=== PATIENT | female | born 1960 | race Hispanic/Latino ===

== ENCOUNTER → 2017-07-24 | Outpatient (CLI) | payer BC ==
[~2017-07-24] MED LIST: SYNTHROID125 MCG PO
--- NOTE | 2017-07-24 11:33 | Diagnostic Imaging Report ---
TECHNIQUE: Magnetic resonance imaging of the RIGHT KNEE was performed WITHOUT injected contrast. HISTORY: Osteoarthritis COMPARISON: None available. FINDINGS: LIGAMENTS AND TENDONS: ACL: Intact PCL: Intact Collateral ligaments: Intact Iliotibial band: Unremarkable Popliteal tendon: Intact Extensor mechanism: Intact JOINT: Menisci: Medial: Intrasubstance degeneration of the body with subtle contour irregularity along the tibial articular surface of the periphery (series 5 image 15). Lateral: Severe complex tearing and attenuation of the anterior horn and adjacent body. Peripheral extrusion of the meniscal remnants. Articular Cartilage: Medial Compartment: Low-grade erosion and fibrillation involving the weight-bearing cartilage of the femoral condyle and tibial plateau. Lateral Compartment: Low to high-grade erosion and fibrillation involving the weight-bearing cartilage of the femoral condyle greater than the tibial plateau. Patellofemoral Compartment: Full-thickness erosion of the lateral patellar facet. Joint Fluid: Trace effusion and synovitis. A 7 mm heterogeneous focus within a lobulated fluid collection superficial to the medial collateral ligament, likely a minimally distended extension from a Astorga's cyst. BONES: The bone marrow signal is heterogeneous, compatible with red marrow conversion, no specific evidence of a focal bone marrow replacing abnormality. No acute fracture. Lateral tilt and translation of the patella. Hypoplastic femoral trochlea. SOFT TISSUES: Otherwise, unremarkable. IMPRESSION: 1. Lateral and patellofemoral compartment predominant tricompartmental degenerative changes, including degenerative tearing of the lateral meniscus much greater than the medial meniscus. 2. Reactive synovitis with associated trace effusion and a minimally distended Astorga's cyst containing a 7 mm partially calcified body. 3. 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 Signed by: Dr. Neil Murray D.O., M.M.M. on 07/24/2017 11:30 AM
== END ==
LOC: MRI 09:13
PROVIDERS: ATTEND Internal Medicine
DX: M17.11 Unilateral primary osteoarthritis, right knee (principal)

== ENCOUNTER → 2017-08-15 | Day surgery (SDC) | payer BC ==
[~2017-08-15] MED LIST changes: +BUPIVACAINE 0.5%/EPI 30 ML SDV INJ ONE; +CALCIUM; +CEFAZOLIN SOD 2 GM/D5W 50ML 50 ML IV ONE; +DEXAMETHASONE SOD PHOS INJ 4 MG/ML VIAL ONE; +EPHEDRINE SULFATE INJ 50 MG/10 ML SYR ONE; +FENTANYL CITRATE/PF 100MCG/2 ML INJ ONE; +KETOROLAC TROMETHAMINE 30 MG/ML VIAL ONE; +LIDOCAINE HCL 2% LOCAL INJ 5 ML SDV VIAL INJ ONE; +MIDAZOLAM HCL 2 MG/2 ML VIAL ONE; +NAPROXEN250 MG PO; +ONDANSETRON HCL INJ 2 MG/ML VIAL ONE; +PROPOFOL IV EMULSION 10 MG/ML 20 ML VIAL ONE; +SEVOFLURANE INHAL SOLN 250 ML PEN BTL ONE; +VITAMIN D; +VITAMINE C
--- NOTE | 2017-08-18 14:50 | Operative Report ---
DATE OF PROCEDURE: August 15, 2017 PREOPERATIVE DIAGNOSES 1. Right knee lateral meniscus tear. 2. Right knee degenerative joint disease of the knee. POSTOPERATIVE DIAGNOSES 1. Right knee lateral meniscus tear. 2. Right knee degenerative joint disease of the knee. OPERATIONS/PROCEDURES PERFORMED 1. Patient underwent a right knee examination under anesthesia. 2. Right knee arthroscopy. 3. Right knee partial lateral meniscectomy. 4. Right knee chondroplasty of the patella, the trochlea, the medial femoral condyle, medial tibial plateau, the lateral femoral condyle, and lateral tibial plateau. WINE CONSULTANT: There was no assistant district attorney. ANESTHESIA: General endotracheal intubation anesthesia. IV FLUIDS: As per anesthesia record. BRIEF DESCRIPTION OF OPERATIVE PROCEDURE: Ms. Copeland was taken to the operating room and placed in supine position on the operating table. Following induction of general anesthesia as well as endotracheal intubation, the patient's right lower extremity was examined under anesthesia. There was found to have a mild effusion within the knee joint, but an otherwise ligamentously stable knee. The patient's lower extremity was prepped and draped in standard surgical fashion. A 2-portal technique was used to provide this patient right knee arthroscopy. Examination in the suprapatellar pouch and medial and lateral gutters found no evidence of loose bodies. There was; however, evidence of chondromalacia of the patella and trochlear surfaces. The scope was advanced into the medial compartment and there was chondromalacia of articulating surfaces. There was no evidence of a meniscus tear. A chondroplasty of the medial femoral condyle and medial tibial plateau was performed at this time. Scope was then advanced into the intercondylar notch and the anterior cruciate ligament was identified and found to be intact. Scope was then advanced into the lateral compartment. There was a tear of the anterior horn in mid portion of the lateral meniscus. A combination of biting forceps and a motorized shaver was used to resect the torn portion of the meniscus. There was a tear of the anterior and mid portion of the lateral meniscus. There was a large undersurface component. A combination of biting forceps and a motorized shaver was used to resect the torn portions of meniscus. Chondroplasties of lateral femoral condyle and lateral tibial plateau were performed at this time. Scope was then placed in suprapatellar pouch and chondroplasties of the patella and trochlea were performed. The knee was then deflated of its sterile normal saline. Each of the portal sites were closed using 4-0 nylon suture. The portal sites as well as the knee itself were injected with 0.5% Marcaine with epinephrine. Sterile dressings were applied and the patient was awakened and taken to postanesthesia care unit in stable condition. Job#: [id number] WILBER
== END | disposition home or self-care (01) ==
LOC: OR 06:40
PROVIDERS: ATTEND Specialist
DX: S83.271A Complex tear of lateral meniscus, current injury, right knee, initial encounter (principal); S83.221A Peripheral tear of medial meniscus, current injury, right knee, initial encounter; M17.11 Unilateral primary osteoarthritis, right knee; M22.41 Chondromalacia patellae, right knee; E03.9 Hypothyroidism, unspecified; K76.0 Fatty (change of) liver, not elsewhere classified; F32.9 Major depressive disorder, single episode, unspecified; X58.XXXA Exposure to other specified factors, initial encounter; Z01.810 Encounter for preprocedural cardiovascular examination
CPT/HCPCS: 29881; 93005; J1100; J1885; J2001; J2250; J2405

== ENCOUNTER → 2019-04-10 | Outpatient (CLI) | payer BC ==
[~2019-04-10] MED LIST changes: -BUPIVACAINE 0.5%/EPI 30 ML SDV INJ ONE; -CEFAZOLIN SOD 2 GM/D5W 50ML 50 ML IV ONE; -DEXAMETHASONE SOD PHOS INJ 4 MG/ML VIAL ONE; -EPHEDRINE SULFATE INJ 50 MG/10 ML SYR ONE; -FENTANYL CITRATE/PF 100MCG/2 ML INJ ONE; -KETOROLAC TROMETHAMINE 30 MG/ML VIAL ONE; -LIDOCAINE HCL 2% LOCAL INJ 5 ML SDV VIAL INJ ONE; -MIDAZOLAM HCL 2 MG/2 ML VIAL ONE; -ONDANSETRON HCL INJ 2 MG/ML VIAL ONE; -PROPOFOL IV EMULSION 10 MG/ML 20 ML VIAL ONE; -SEVOFLURANE INHAL SOLN 250 ML PEN BTL ONE
--- NOTE | 2019-04-10 15:11 | Diagnostic Imaging Report ---
EXAM: SP LUMBAR, COMPLETE MIN 4VW, SACRUM X-RAY DATE: 04/10/2019 2:26 PM INDICATION: Lumbar spondylosis COMPARISON: None FINDINGS: There are 5 nonrib-bearing lumbar-type vertebral bodies. There is no evidence for acute fracture or dislocation. Vertebral body heights are well-maintained. Bony mineralization is within normal limits. No focal lytic or blastic abnormality is identified. There are mild/moderate multilevel degenerative changes of the lumbar spine, more prominent within the lower lumbar spine were there is suspected facet arthropathy. The bilateral SI joints are unremarkable. Partially visualized reservoir and lap band noted. Cholecystectomy clips noted within the right upper quadrant. Phleboliths and surgical clips noted within the pelvis. Remaining visualized intra-abdominal contents are unremarkable. The surrounding soft tissues and straight no significant abnormalities. IMPRESSION: No acute radiographic abnormality identified within the lumbar spine. Degenerative changes as above. Signed by: Dr. Melquiades Kelly MD on 04/10/2019 3:09 PM
== END ==
LOC: RAD 14:15
PROVIDERS: ATTEND Internal Medicine
DX: M43.07 Spondylolysis, lumbosacral region (principal)
CPT/HCPCS: 72110; 72220

== ENCOUNTER 2021-01-27 20:02 | Emergency (ER) | payer BC, OTHER ==
[~2021-01-27] VITALS: Ht 165.1 cm; Wt 102.1 kg
[2021-01-27] MEDS ORDERED: IBUPROFEN IB200 MG PO (20:30)
[2021-01-27] MEDS ORDERED: ACETAMINOPHEN500 MG PO (20:30)
[2021-01-27] MEDS ORDERED: ACETAMINOPHEN 325 MG TAB PO ONE (20:30)
[2021-01-27] MEDS ORDERED: IBUPROFEN 200 MG TAB PO ONE (20:30)
[2021-01-27] MEDS ORDERED: IBUPROFEN 600 MG TAB ONE (20:38)
== END 2021-01-27 21:45 | disposition home or self-care (01) ==
LOC: MERGE 20:21 → FSED 20:21 → UNMERGE 20:21 → FSED 21:45
DX: S52.122A Displaced fracture of head of left radius, initial encounter for closed fracture (principal); S50.01XA Contusion of right elbow, initial encounter; S80.01XA Contusion of right knee, initial encounter; W01.0XXA Fall on same level from slipping, tripping and stumbling without subsequent striking against object, initial encounter; Y93.01 Activity, walking, marching and hiking; Y92.89 Other specified places as the place of occurrence of the external cause
CPT/HCPCS: 99284

== ENCOUNTER 2021-02-23 15:00 | Outpatient (RCR) | payer BC ==
[~2021-02-23 15:00] MED LIST changes: +ACETAMINOPHEN500 MG PO; +IBUPROFEN IB200 MG PO
== END 2021-02-25 ==
LOC: OT 15:00
PROVIDERS: ATTEND Orthopaedic Surgery
DX: S52.122A Displaced fracture of head of left radius, initial encounter for closed fracture (principal); S52.124A Nondisplaced fracture of head of right radius, initial encounter for closed fracture

== ENCOUNTER 2021-03-24 09:48 | Outpatient (RCR) | payer BC | END 2021-03-28 | LOC: OT 09:48 | PROVIDERS: ATTEND Orthopaedic Surgery | DX: S52.122A Displaced fracture of head of left radius, initial encounter for closed fracture (principal); S52.124A Nondisplaced fracture of head of right radius, initial encounter for closed fracture ==

== ENCOUNTER 2021-03-29 09:15 | Outpatient (RCR) | payer BC | END 2021-04-25 | LOC: OT 09:15 | PROVIDERS: ATTEND Orthopaedic Surgery | DX: S52.122A Displaced fracture of head of left radius, initial encounter for closed fracture (principal); S52.124A Nondisplaced fracture of head of right radius, initial encounter for closed fracture ==